=== PATIENT | male | born 1940 | race Two or more races ===

== ENCOUNTER 2017-07-20 10:16 | Outpatient (CLI) | payer MEDICARE, OTHER ==
[~2017-07-20 10:16] MED LIST: AMLODIPINE BESYL5 MG PO; ASPIR-LOW81 MG PO; ATORVASTATIN CA20 MG PO; AVODART0.5 MG ORAL; BENTYL10 MG PO; DEXILANT30 MG PO; DIOVAN HCT 80-1 EACH PO; GABAPENTIN300 MG ORAL; GABAPENTIN300 MG/61 ORAL; IBANDRONATE SO150 MG PO; JALYN 0.5-0.41 EACH PO; LEXAPRO10 MG PO; LORATADINE10 M2 PO; LOVAZA1 GM PO; NEXIUM40 M2 ORAL; NEXIUM40 MG ORAL; PRILOSEC40 MG PO; TAMSULOSIN HCL0.4 MG ORAL; VASCEPA1 GM PO
[2017-07-20 10:30] VITALS: BP 124/75
--- NOTE | 2017-07-20 10:48 | GI Progress Note ---
Assessment/Plan Problems: (1) Colon cancer ICD Codes: C18.9 - Colon cancer SNOMED: 744416772 (2) Gastritis ICD Codes: K29.70 - Gastritis, unspecified, without bleeding SNOMED: 1108774 (3) HTN (hypertension) ICD Codes: I10 - HTN (hypertension) SNOMED: 88308616 (4) S/P partial colectomy ICD Codes: Z98.89 - S/P partial colectomy SNOMED: 820318543 (5) GERD (gastroesophageal reflux disease) ICD Codes: K21.9 - Gastro-esophageal reflux disease without esophagitis SNOMED: 006685341 (6) Chronic constipation ICD Codes: K59.09 - Other constipation SNOMED: 878237342 Status: stable Status Narrative Discussed with Dr. Salmeron. Assessment/Plan EGD/colonoscopy scheduled for 07/28/17. - CLD & (Nulytely/Suprep/Movi-Prep) prep instructions given and acknowledged by patient. - NPO @ [place] day prior procedure explained. Rx Amitiza 24mcg BID Subjective Subjective abdominal pain, minimal and occasional abdominal bloating hx of colon CA Objective Last 24 Hour Vital Signs Date Time Temp Pulse Resp B/P (MAP) Pulse Ox O2 Delivery O2 Flow Rate FiO2 07/20/17 10:30 98.2 66 16 124/75 99 General Appearance: WD/WN, no apparent distress, alert Cardiovascular: normal rate Respiratory/Chest: normal breath sounds, no respiratory distress Abdominal Exam: normal bowel sounds, non tender, soft Extremities: normal range of motion, non-tender Constanza Roa N.P. Jul 20, 2017 10:48
--- NOTE | 2017-07-20 11:01 | GI Initial Consult Note ---
History of Present Illness General Date patient seen: Jul 20, 2017 Time patient seen: 10:57 Referring physician: SAM Reason for Consultation: COLONOSCOPY Present Illness HPI 76 year old male with history of colon CA referred by Dr. Galindo presents today for repeat colonoscopy screening. Complaint of abdominal pain, minimal and occasional and abdominal bloating. Last colonoscopy was performed in July of 2016, see summary below. Denies any unintentional weight loss or changes in dietary habits. No signs of abuse or neglect. Patient is not fall risk. s/p colonoscopy 07/2016 SUMMARY OF FINDINGS: 1. No recurrent polyps. 2. Diverticulosis. 3. Internal hemorrhoids. Home Meds Reported Medications Dutasteride (AVODART) 0.5 Mg Capsule, 0.5 MG ORAL DAILY, CAP 07/23/16 Tamsulosin Hcl (TAMSULOSIN HCL*) 0.4 Mg Cap.er.24h, 0.4 MG ORAL BEDTIME, CAP 07/23/16 Loratadine (LORATADINE) 10 Mg Tablet, 10 MG PO, TAB 07/23/16 Icosapent Ethyl (VASCEPA) 1 Gm Capsule, 1 GM PO DAILY, CAP 12/05/15 Ibandronate Sodium (IBANDRONATE SODIUM) 150 Mg Tablet, 150 MG PO DAILY, TAB 07/17/14 Atorvastatin Calcium* (ATORVASTATIN CALCIUM*) 20 Mg Tablet, 20 MG PO QHS 08/05/12 Aspirin* (ASPIR-LOW*) 81 Mg Tablet.dr, 81 MG PO DAILY, TAB 08/05/12 Valsartan/Hydrochlorothiazide 80-12.5MG (DIOVAN HCT 80-12.5 MG TABLET) 1 Each Tablet, 1 TAB PO DAILY, TAB Take one tablet by mouth daily 08/05/12 Discontinued Reported Medications Esomeprazole Magnesium (NEXIUM) 40 Mg Capsule.dr, 40 MG ORAL DAILY, CAP 07/23/16 Med list reviewed/reconciled: Yes Allergies: Coded Allergies: NO KNOWN ALLERGIES (Verified Allergy, Unknown, 07/19/15) Patient History History Provided By: Patient, Medical Record [facility] Narrative PAST MEDICAL HISTORY: (1) Gastritis (2) Colon cancer (3) HTN (hypertension) (4) S/P partial colectomy Review of Systems All Other Systems: negative except mentioned in HPI Physical Exam Vital Signs Date Time Temp Pulse Resp B/P (MAP) Pulse Ox O2 Delivery O2 Flow Rate FiO2 07/20/17 10:30 98.2 66 16 124/75 99 Sp02 EP Interpretation: reviewed, normal General Appearance: well appearing, no apparent distress, alert Head: normocephalic EENT: PERRL/EOMI, normal ENT inspection Neck: supple Respiratory: normal breath sounds, no respiratory distress Cardiovascular: normal rate Gastrointestinal: normal inspection, non tender, soft, normal bowel sounds, non -distended Rectal: deferred Genitourinary: deferred Musculoskeletal: normal inspection, back normal Neurologic: normal inspection, alert, oriented x3, responsive Psychiatric: normal inspection, judgement/insight normal, memory normal Skin: normal inspection, normal color, no rash, warm/dry, palpation normal, well hydrated Lymphatic: normal inspection, no adenopathy GI: Plan Plan Problems: (1) Colon cancer ICD Codes: C18.9 - Colon cancer SNOMED: 929548753 (2) Gastritis ICD Codes: K29.70 - Gastritis, unspecified, without bleeding SNOMED: 1095073 (3) HTN (hypertension) ICD Codes: I10 - HTN (hypertension) SNOMED: 82142417 (4) S/P partial colectomy ICD Codes: Z98.89 - S/P partial colectomy SNOMED: 888760484 (5) GERD (gastroesophageal reflux disease) ICD Codes: K21.9 - Gastro-esophageal reflux disease without esophagitis SNOMED: 925255410 (6) Chronic constipation ICD Codes: K59.09 - Other constipation SNOMED: 135846817 Status: stable Status Narrative Discussed with Dr. Salmeron. Assessment/Plan EGD/colonoscopy scheduled for 07/28/17. - CLD & (Nulytely/Suprep/Movi-Prep) prep instructions given and acknowledged by patient. - NPO @ [place] day prior procedure explained. Rx Amitiza 24mcg Constanza Anderson N.PDario Jul 20, 2017 11:01
== END 2017-07-20 10:55 | disposition home or self-care (01) ==
LOC: PAN 10:16
DX: C18.9 Malignant neoplasm of colon, unspecified (principal); K29.70 Gastritis, unspecified, without bleeding; I10 Essential (primary) hypertension; Z98.890 Other specified postprocedural states; K21.9 Gastro-esophageal reflux disease without esophagitis; K59.09 Other constipation
CPT/HCPCS: 99212

== ENCOUNTER 2017-07-28 06:51 | Day surgery (SDC) | payer MEDICARE, OTHER ==
[2017-07-28] VITALS (9 sets, daily range): BP systolic 117–138; BP diastolic 60–78
[~2017-07-28] VITALS: Ht 165.1 cm; Wt 81.6 kg
--- NOTE | 2017-07-28 08:30 | Pre-Procedure Note/Attestation ---
Pre-Procedure Note/Attestation Complete Prior to Procedure Planned Procedure: not applicable Procedure Narrative: esophagogastroduodenoscopy and colonoscopy Indications for Procedure Pre-Operative Diagnosis: h/o colon cancer GERD Attestation I attest that I discussed the nature of the procedure; its benefits; risks and complications; and alternatives (and the risks and benefits of such alternatives ), prior to the procedure, with the patient (or the patient's legal employee relations representative). I attest that, if there was a reasonable possibility of needing a blood transfusion, the patient (or the patient's legal employee relations representative) was given the [facility] standardized written summary, pursuant to the [place] Blood Safety Act ([place] Health and Safety Code # 1645, as amended). I attest that I re-evaluated the patient just prior to the surgery and that there has been no change in the patient's H&P, except as documented below: BERNARDO ZHONG Jul 28, 2017 08:30
--- NOTE | 2017-07-28 08:31 | Short Stay Surgery H&P ---
History of Present Illness History of Present Illness Chief Complaint see recent office note HPI Christiano Fenton is a 76 year old male who was admitted on for Gerd,Hx Of Colon Cancer Patient History Allergies: Coded Allergies: NO KNOWN ALLERGIES (Verified Allergy, Unknown, 07/19/15) PAST MEDICAL HISTORY: Past Surgeries: Social History: Medication History Scheduled Aspirin* (Aspir-Low*), 81 MG PO DAILY, (Reported) Atorvastatin Calcium* (Atorvastatin Calcium*), 20 MG PO QHS, (Reported) Dutasteride (Avodart), 0.5 MG ORAL DAILY, (Reported) Ibandronate Sodium (Ibandronate Sodium), 150 MG PO DAILY, (Reported) Icosapent Ethyl (Vascepa), 1 GM PO DAILY, (Reported) Loratadine (Loratadine), 10 MG PO HS, (Reported) Tamsulosin Hcl (Tamsulosin Hcl*), 0.4 MG ORAL BEDTIME, (Reported) Valsartan/Hydrochlorothiazide 80-12.5MG (Diovan Hct 80-12.5 Mg Tablet), 1 TAB PO DAILY, (Reported) Physical Exam Vital Signs Last Vital Signs Date Time Temp Pulse Resp B/P (MAP) Pulse Ox O2 Delivery O2 Flow Rate FiO2 07/28/17 08:10 97.3 58 18 138/76 99 Room Air Plan Attestation Are the patient's medical conditions optimized for surgery? BERNARDO ZHONG Jul 28, 2017 08:31
--- NOTE | 2017-07-28 08:57 | Endoscopy Procedure Note ---
Endoscopy Procedure Note Indication for Procedure: H/O COLON CANCER, GERD Procedures Performed: EGD, colonoscopy Operative Findings/Diagnosis: GASTRITIS Specimen: yes Pt Tolerated Procedure Well: Yes Estimated Blood Loss: none Anesthesiologist: CHELY Anesthesia: MAC Implant(s) used?: No 50 yrs or older w/o bx or poly: No 10yrs. F/U not recommended: Yes If not recommended, why?: Above average risk 10 yrs. F/U needed: Yes 18 years or older w/prev. colo: Yes <3yrs. since last colonoscopy: Yes Med reason:<3 yrs.: COLON CANCER BERNARDO ZHONG Jul 28, 2017 08:57
--- NOTE | 2017-07-28 08:59 | Anethesia Preoperative Eval ---
Anesthesia Pre-op PMH/ROS General Date of Evaluation: Jul 28, 2017 Time of Evaluation: 08:34 Anesthesiologist: amelia ASA Score: ASA 3 Mallampati Score Class I : Soft palate, uvula, fauces, pillars visible Class II: Soft palate, uvula, fauces visible Class III: Soft palate, base of uvula visible Class IV: Only hard plate visible Mallampati Classification: Class II Surgeon: moreno Diagnosis: gerd, colon cancer Surgical Procedure: egd/colonoscopy Anesthesia History: none Allergies: Coded Allergies: NO KNOWN ALLERGIES (Verified Allergy, Unknown, 07/19/15) Medications: see eMAR Past Medical History Cardiovascular: Reports: HTN Gastrointestinal/Genitourinary: Reports: GERD, other - colon cancer Neurologic/Psychiatric: Reports: depression/anxiety, other - seizure dz. Anesthesia Pre-op Phys. Exam Physician Exam Last Vital Signs Date Time Temp Pulse Resp B/P (MAP) Pulse Ox O2 Delivery O2 Flow Rate FiO2 07/28/17 08:10 97.3 58 18 138/76 99 Room Air Constitutional: NAD Neurologic: CN 2-12 intact Cardiovascular: other - bradycardia Respiratory: CTA Gastrointestinal: S/NT/ND Airway Exam Mallampati Score: Class II MO: full Neck: supple TMD: 2fb ROM: full Anesthesia Pre-op A/P Studies Pre-op Studies: EKG - sinus bradycardia Risk Assessment & Plan Assessment: asa3 Plan: mac Status Change Before Surgery: No Pre-Antibiotics Drug: na AIYANA DURÁN Jul 28, 2017 08:59
[2017-07-28] MEDS ORDERED: Midazolam 2mg/2ml Inj IVP PRN (09:15)
[2017-07-28] MEDS ORDERED: DiphenhydrAMINE 50mg/ml Inj IVP PRN (09:15)
[2017-07-28] MEDS ORDERED: fentaNYL 100 mcg/2 mL IV PRN (09:15)
[2017-07-28] MEDS ORDERED: Atropine Inj 1mg/10ml Syr IV PRN (09:15)
[2017-07-28] MEDS ORDERED: Propofol 200mg/20ml IV ONE (09:30)
[2017-07-28] MEDS ORDERED: Lidocaine 1% MPF 10mg/ml 5ml ONE (09:30)
[2017-07-28] MEDS ORDERED: Glycopyrrolate 0.2mg/ml 1ml Vial ONE (09:30)
--- NOTE | 2017-07-28 09:30 | Immediate Post-Op Evaluation ---
Immediate Post-Op Evalulation Immediate Post-Op Evalulation Procedure: egd/colonoscopy Date of Evaluation: Jul 28, 2017 Time of Evaluation: 09:15 IV Fluids: 350ml 0.9ns Blood Products: none Estimated Blood Loss: negligible Blood Pressure Systolic: 100 Blood Pressure Diastolic: 68 Pulse Rate: 50 Respiratory Rate: 18 O2 Sat by Pulse Oximetry: 99 Temperature (Fahrenheit): 97.1 Pain Score (1-10): 0 Nausea: No Vomiting: No Complications none Patient Status: awake, reacts, patent Hydration Status: adequate Drug: AIYANA Mccain Jul 28, 2017 09:30
--- NOTE | 2017-07-28 09:31 | 48 Hour Post Anesthesia Eval ---
Post Anesthesia Evaluation Procedure: egd/colonoscopy Date of Evaluation: Jul 28, 2017 Time of Evaluation: 09:17 Blood Pressure Systolic: 105 0: 66 Pulse Rate: 58 Respiratory Rate: 18 Temperature (Fahrenheit): 97.1 O2 Sat by Pulse Oximetry: 99 Airway: patent Nausea: No Vomiting: No Pain Intensity: 0 Hydration Status: adequate Cardiopulmonary Status: stable Mental Status/LOC: patient returned to baseline Post-Anesthesia Complications: none Follow-up care needed: N/A AIYANA DURÁN Jul 28, 2017 09:31
--- NOTE | 2017-07-28 16:31 | Procedure Note ---
DATE OF PROCEDURE: 07/28/2017 SURGEON: Codey Salmeron M.D. REQUESTING PHYSICIAN: . PROCEDURE: Upper endoscopy biopsy and colonoscopy with biopsy. ANESTHESIA: Per Dr. Naylor. INSTRUMENT: Olympus adult flexible upper endoscope and colonoscope. INDICATION: History of colon cancer, followup for screening colon and history of chronic acid reflux disease. The procedure, risks, benefits, and possible consequences, including hemorrhage, aspiration, perforation and infection, and alternative treatments, were explained to the patient/legal guardian by Dr. Codey Salmeron and the patient/legal guardian understood and accepted these risks. DESCRIPTION OF PROCEDURE: After informed consent was obtained and the patient was adequately sedated, Olympus upper endoscope was advanced mouth into the second portion of the duodenum and retroflexion was performed in the stomach. The patient had diffuse gastritis. Random biopsies from antrum and body were obtained to rule out H. pylori infection. The patient also had evidence of small hiatal hernia. At this time, the upper endoscope was retrieved, and the patient was turned over for colonoscopy. First, a rectal exam was performed, which was normal. Then, the scope was advanced from the rectum into the anastomosis. A random biopsy from anastomosis was obtained. There was no further mass or polyp seen in this colonoscopic examination. One single diverticula was seen in the mid colon. Retroflexion in the rectum showed evidence of few nonbleeding internal hemorrhoids. The patient tolerated the procedure very well without any complication. SUMMARY OF FINDINGS: 1. Diffuse gastritis, status post biopsy. 2. Small hiatal hernia. 3. Internal hemorrhoids. 4. One single diverticula. 5. History of colon cancer with right hemicolectomy, status post biopsy of anastomosis. RECOMMENDATIONS: Follow up biopsy result and treat accordingly. I want to thank Dr. Anjali Valencia for this kind referral. Codey Salmeron M.D. DR: HAKEEM JOB#: [id number] CC:
--- NOTE | 2017-07-29 11:00 | Cardiology Report ---
APPROVED REPORT EKG Measurement Heart [id number] TN [id number] Sinus bradycardia Otherwise normal ECG
== END 2017-07-28 10:40 | disposition home or self-care (01) ==
LOC: GAS 06:51
DX: K21.9 Gastro-esophageal reflux disease without esophagitis (principal); K29.50 Unspecified chronic gastritis without bleeding; K44.9 Diaphragmatic hernia without obstruction or gangrene; K64.8 Other hemorrhoids; K57.30 Diverticulosis of large intestine without perforation or abscess without bleeding; I10 Essential (primary) hypertension; F32.9 Major depressive disorder, single episode, unspecified; F41.9 Anxiety disorder, unspecified; G40.909 Epilepsy, unspecified, not intractable, without status epilepticus; R00.1 Bradycardia, unspecified; Z90.49 Acquired absence of other specified parts of digestive tract; Z85.038 Personal history of other malignant neoplasm of large intestine
CPT/HCPCS: 43239; 45380; 93005; J2704; 94003; 94150

== ENCOUNTER 2017-08-10 09:47 | Outpatient (CLI) | payer MEDICARE, OTHER ==
--- NOTE | 2017-08-10 10:52 | GI Progress Note ---
Assessment/Plan Problems: (1) Gastritis ICD Codes: K29.70 - Gastritis, unspecified, without bleeding SNOMED: 7777812 (2) Colon cancer ICD Codes: C18.9 - Colon cancer SNOMED: 150113921 (3) HTN (hypertension) ICD Codes: I10 - HTN (hypertension) SNOMED: 25660316 (4) GERD (gastroesophageal reflux disease) ICD Codes: K21.9 - Gastro-esophageal reflux disease without esophagitis SNOMED: 345807245 (5) S/P partial colectomy ICD Codes: Z98.89 - S/P partial colectomy SNOMED: 567122183 Status: stable Status Narrative Seen with Dr. Salmeron. Assessment/Plan s/p EGD/ colonoscopy SUMMARY OF FINDINGS reviewed with patient: 1. Diffuse gastritis, status post biopsy. 2. Small hiatal hernia. 3. Internal hemorrhoids. 4. One single diverticula. 5. History of colon cancer with right hemicolectomy, status post biopsy of anastomosis. RECOMMENDATIONS: Follow up biopsy result and treat accordingly. >> H. Pylori positive - Tx with quadruple therapy (bismuth + tetracycline + flagly + omeprazole) RTC x 3 months for repeat BT repeat colon x 5 years Subjective Gastrointestinal/Abdominal: Reports: no symptoms Objective T 97.6 BP 125/64 P 70 94 RA General Appearance: WD/WN, no apparent distress, alert Cardiovascular: normal rate Respiratory/Chest: normal breath sounds, no respiratory distress Abdominal Exam: normal bowel sounds, non tender, soft Extremities: normal range of motion, non-tender Constanza Roa N.P. Aug 10, 2017 10:52
[2017-08-10 13:04] VITALS: BP 125/64
== END 2017-08-10 10:22 | disposition home or self-care (01) ==
LOC: PAN 09:47
DX: K29.70 Gastritis, unspecified, without bleeding (principal); C18.9 Malignant neoplasm of colon, unspecified; I10 Essential (primary) hypertension; K21.9 Gastro-esophageal reflux disease without esophagitis; K44.9 Diaphragmatic hernia without obstruction or gangrene; K57.90 Diverticulosis of intestine, part unspecified, without perforation or abscess without bleeding; K64.8 Other hemorrhoids
CPT/HCPCS: 99212

== ENCOUNTER 2019-03-15 13:29 | Outpatient (CLI) | payer MEDICARE, OTHER ==
--- NOTE | 2019-03-15 14:34 | General Progress Note ---
Assessment/Plan Problem List: (1) S/P partial colectomy ICD Codes: Z98.89 - S/P partial colectomy SNOMED: 187666029 (2) HTN (hypertension) ICD Codes: I10 - HTN (hypertension) SNOMED: 46456507 (3) GERD (gastroesophageal reflux disease) ICD Codes: K21.9 - Gastro-esophageal reflux disease without esophagitis SNOMED: 055566621 (4) Colon cancer ICD Codes: C18.9 - Colon cancer SNOMED: 509930746 (5) Gastritis ICD Codes: K29.70 - Gastritis, unspecified, without bleeding SNOMED: 3265165 (6) Chronic constipation ICD Codes: K59.09 - Other constipation SNOMED: 960391293 Assessment/Plan: sig wt loss plan jovel CT Subjective ROS Limited/Unobtainable: Yes Allergies: Coded Allergies: NO KNOWN ALLERGIES (Verified Allergy, Unknown, 07/19/15) Objective General Appearance: alert EENT: normal ENT inspection Neck: supple Cardiovascular: normal rate Respiratory/Chest: lungs clear Abdomen: normal bowel sounds, non tender, soft Extremities: non-tender Codey Salmeron MD Mar 15, 2019 14:34
== END 2019-03-15 15:29 | disposition home or self-care (01) ==
LOC: PAN 13:29
DX: K21.9 Gastro-esophageal reflux disease without esophagitis (principal); I10 Essential (primary) hypertension; Z98.890 Other specified postprocedural states; C18.9 Malignant neoplasm of colon, unspecified; K29.70 Gastritis, unspecified, without bleeding; K59.09 Other constipation
CPT/HCPCS: 99212

== ENCOUNTER → 2019-03-21 | Outpatient (CLI) | payer MEDICARE, OTHER ==
[2019-03-21 09:26] LABS: BASOPHILS % (AUTO) 1.6 % (0.0-2.0); EOSINOPHILS % (AUTO) 3.8 % (0.0-3.0); HEMOGLOBIN 13.4 G/DL (14.2-18.0); LYMPHOCYTES % (AUTO) 24.1 % (20.0-45.0); MEAN CORPUSCULAR VOLUME 82 FL (80-99); MONOCYTES % (AUTO) 9.5 % (1.0-10.0); PLATELET COUNT 209 K/UL (150-450); RED CELL DISTRIBUTION WIDTH 13.7 % (11.6-14.8); WHITE BLOOD COUNT 5.7 K/UL (4.8-10.8)
[2019-03-21 09:56] LABS: ANION GAP 8 mmol/L (5-15); BLOOD UREA NITROGEN 9 mg/dL (7-18); CALCIUM 9.4 MG/DL (8.5-10.1); CARBON DIOXIDE 31 MMOL/L (21-32); CHLORIDE 103 MMOL/L (98-107); POTASSIUM 3.9 MMOL/L (3.5-5.1); SODIUM 141 MMOL/L (136-145)
--- NOTE | 2019-03-21 13:53 | Diagnostic Imaging Report ---
Indication: Abdominal pain. Weight loss. Chest pain Technique: Continuous helical transaxial imaging of the chest, abdomen and pelvis was obtained from the lung bases to the pubic symphysis during intravenous contrast administration. Multiple phases of enhancement obtained. Coronal 2-D reformats were also obtained. Study obtained in a Siemens sensation [address] Automatic Exposure Control was utilized. Total Dose length Product (DLP): 1654.[address] Dose Index Volume (CTDIvol): 18.33,16.19 mGy Comparison: 08/05/2012 Findings: CT CHEST: There is mild posterior basal atelectasis initiated. No lung nodules are identified. The heart is enlarged. There is a moderate size hiatal hernia. There is no adenopathy identified. Axilla appear clear. CT abdomen and pelvis: The patient has had interval resection of part of the cecum. Anastomotic sutures are noted. There is no evidence of bowel obstruction with normal caliber small bowel noted throughout. There is moderate degree of fecal retention in the colon with a marked redundancy of the sigmoid region. Aortoiliac ulcerations are moderate. Solid organs appear normal including the liver, both kidneys, spleen, pancreas. Gallbladder is unremarkable. There is no free fluid. Supraumbilical hernia containing fat noted. IMPRESSION: No evidence of malignancy on the basis of this examination. Status post partial colon resection in the area of the cecum. No abscess, evidence of bowel obstruction or other acute pathology. Atherosclerotic vascular disease. Moderate fecal retention in the colon Small supraumbilical hernia containing fat. The CT scanner at [facility] is accredited by the [employer] and the scans are performed using dose optimization techniques as appropriate to a performed exam including Automatic Exposure control.
== END | disposition home or self-care (01) ==
LOC: CAT 09:03 → EDSTATUS 10:00
DX: R63.4 Abnormal weight loss (principal); R10.9 Unspecified abdominal pain; R07.9 Chest pain, unspecified; K42.9 Umbilical hernia without obstruction or gangrene; Z90.49 Acquired absence of other specified parts of digestive tract
CPT/HCPCS: 36415; 71260; 74177; 80048; 82378; 85025; Q9967

== ENCOUNTER 2019-03-28 09:49 | Outpatient (CLI) | payer MEDICARE, OTHER ==
--- NOTE | 2019-03-28 10:57 | General Progress Note ---
Assessment/Plan Problem List: (1) S/P partial colectomy ICD Codes: Z98.89 - S/P partial colectomy SNOMED: 741061480 (2) Chronic constipation ICD Codes: K59.09 - Other constipation SNOMED: 491974479 (3) HTN (hypertension) ICD Codes: I10 - HTN (hypertension) SNOMED: 15749892 (4) GERD (gastroesophageal reflux disease) ICD Codes: K21.9 - Gastro-esophageal reflux disease without esophagitis SNOMED: 556375654 (5) Colon cancer ICD Codes: C18.9 - Colon cancer SNOMED: 841462085 (6) Gastritis ICD Codes: K29.70 - Gastritis, unspecified, without bleeding SNOMED: 9950721 (7) Colonoscopy planned SNOMED: 966563743 Assessment/Plan: ct reviewed refer to pmd for thyroid test rtc prn Subjective ROS Limited/Unobtainable: Yes Allergies: Coded Allergies: NO KNOWN ALLERGIES (Verified Allergy, Unknown, 07/19/15) Objective General Appearance: alert EENT: normal ENT inspection Neck: supple Cardiovascular: normal rate Respiratory/Chest: lungs clear Abdomen: normal bowel sounds, non tender, soft Extremities: non-tender Codey Salmeron MD Mar 28, 2019 10:57
[2019-03-28 15:09] VITALS: BP 140/80
== END 2019-03-28 11:49 | disposition home or self-care (01) ==
LOC: PAN 09:49
DX: K59.09 Other constipation (principal); I10 Essential (primary) hypertension; K21.9 Gastro-esophageal reflux disease without esophagitis; C18.9 Malignant neoplasm of colon, unspecified; K29.70 Gastritis, unspecified, without bleeding; Z98.890 Other specified postprocedural states
CPT/HCPCS: 99212

== ENCOUNTER 2020-04-30 09:40 | Outpatient (CLI) | payer MEDICARE, OTHER ==
[2020-04-30 09:53] VITALS: BP 128/79
--- NOTE | 2020-04-30 11:33 | General Progress Note ---
Assessment/Plan Assessment/Plan: Assessment/Plan Problem List: (1) S/P partial colectomy ICD Codes: Z98.89 - S/P partial colectomy SNOMED: 406145623 (2) Chronic constipation ICD Codes: K59.09 - Other constipation SNOMED: 059180265 (3) HTN (hypertension) ICD Codes: I10 - HTN (hypertension) SNOMED: 08826067 (4) GERD (gastroesophageal reflux disease) ICD Codes: K21.9 - Gastro-esophageal reflux disease without esophagitis SNOMED: 302546459 (5) Colon cancer ICD Codes: C18.9 - Colon cancer SNOMED: 247877641 (6) Gastritis ICD Codes: K29.70 - Gastritis, unspecified, without bleeding SNOMED: 4250110 (7) Colonoscopy planned SNOMED: 188396752 Assessment/Plan: trial of trulance>>>> send RX to [facility]>>>> no response add trial of Zenpep lactose free diet RTC one month Subjective ROS Limited/Unobtainable: Yes Allergies: Coded Allergies: NO KNOWN ALLERGIES (Verified Allergy, Unknown, 07/19/15) Objective Last 24 Hour Vital Signs Date Time Temp Pulse Resp B/P (MAP) Pulse Ox O2 Delivery O2 Flow Rate FiO2 04/30/20 09:53 97.4 67 128/79 97 General Appearance: alert EENT: normal ENT inspection Neck: supple Cardiovascular: normal rate Respiratory/Chest: decreased breath sounds Abdomen: normal bowel sounds, non tender, soft Extremities: non-tender Codey Salmeron MD Apr 30, 2020 11:33
== END 2020-04-30 11:40 | disposition home or self-care (01) ==
LOC: PAN 09:40
DX: K59.09 Other constipation (principal); I10 Essential (primary) hypertension; K21.9 Gastro-esophageal reflux disease without esophagitis; C18.9 Malignant neoplasm of colon, unspecified; K29.70 Gastritis, unspecified, without bleeding; Z98.890 Other specified postprocedural states
CPT/HCPCS: 99212